=== PATIENT | female | born 1955 | race African-American/Black ===

== ENCOUNTER 2016-05-05 22:42 | Inpatient (IN) | payer MEDICARE, MEDICAID ==
[~2016-05-05] VITALS: Ht 167.6 cm; Wt 96.2 kg
[~2016-05-05 22:42] MED LIST: ABILIFY10 MG ORAL; ABILIFY30 MG; ACETAMINOPHEN-1 EAC1; ALBUTEROL2.5 MG/3 M; AMBIEN10 M1 ORAL; AMLODIPINE BESY10 MG; AMLODIPINE BESY10 MG ORAL; AMLODIPINE-BEN1 EAC1 PO; ASPIR 8181 MG ORAL; ASPIRIN81 MG ORAL; ATIVAN2 MG ORAL; ATORVASTATIN CA10 MG ORAL; BENADRYL50 MG ORAL; CATAPRES0.1 MG ORAL; CLONIDINE HCL0.3 MG; CLONIDINE HCL0.3 MG PO; CYMBALTA60 MG ORAL; ECOTRIN325 MG ORAL; FREESTYLE LANC1 EACH; GLIMEPIRIDE2 MG ORAL; GLIPIZIDE5 MG ORAL; GLUCOPHAGE500 MG ORAL; HYDRALAZINE HCL50 MG ORAL; HYDROCODON-ACE1 EA13; HYDROCODON-ACE1 EA15 ORAL; HYDROXYZINE HCL50 M1; ISOSORBIDE DINI10 MG ORAL; K-DUR10 ME1 ORAL; LAMICTAL ODT25 MG PO; LAMICTAL200 MG ORAL; LASIX40 MG ORAL; LISINOPRIL20 MG ORAL; LOSARTAN POTAS100 MG; LOSARTAN POTAS100 MG ORAL; LOSARTAN POTASS50 MG ORAL; LOSARTAN-HCTZ1 EAC1 ORAL; METFORMIN HCL1000 M1; METFORMIN HCL1000 M1 ORAL; METOPROLOL SUCC50 MG ORAL; NIACIN ER500 M1; NIACIN500 M1 PO; NORCO 10/3251 EA ORAL; NORCO 5-325 TA1 EACH ORAL; NORVASC10 MG ORAL; OXYCONTIN20 MG ORAL; PENTOXIFYLLINE400 MG; PENTOXIFYLLINE400 MG ORAL; POTASSIUM 25 M25 ME1 PO; POTASSIUM CHLO20 ME3 PO; PRAVACHOL40 MG ORAL; PREDNISONE10 M2 PO; PREDNISONE20 M1 PO; PRINIVIL20 MG ORAL; PROAIR HFA8.5 GM; PROAIR HFA8.5 GM INH; REMERON30 MG ORAL; REMERON45 MG ORAL; SEROQUEL XR300 MG; SEROQUEL200 MG ORAL; SIMVASTATIN20 MG; SIMVASTATIN20 MG ORAL; SOMA350 MG; SOMA350 MG PO; TYLENOL EXTRA500 MG ORAL; XANAX2 MG ORAL; ZITHROMAX250 MG ORAL
--- NOTE | 2016-05-05 22:56 | Emergency Room Report ---
History of Present Illness General Chief Complaint: Overdose Source: Patient, EMS Present Illness HPI This is a 61-year-old female with history of depression. She said she couldn't sleep so she took a handful of medication. She took Benadryl, Ativan, blood pressure medication and glimiperide. She said she tried to sleep. Vague suicidal thoughts. Denies any fever chills denies hallucination. Denies any homicidal thought. Daughter called 911. Allergies: Coded Allergies: KETOROLAC (Unverified Allergy, Unknown, 01/20/15) MORPHINE (Unverified Allergy, Unknown, 05/25/14) Patient History Past Medical History: see triage record, old chart reviewed, depression, HTN Past Surgical History: other Family History: none Social History: tobacco use Now: No Immunizations: other Reviewed Nursing Documentation: PMH: Agreed, PSxH: Agreed Nursing Documentation-PMH Past Medical History: No History, Except For Hx Cardiac Problems: Yes Hx Hypertension: Yes Hx Asthma: Yes Hx COPD: Yes Hx Diabetes: Yes Hx Cancer: No Hx Gastrointestinal Problems: No History Of Psychiatric Problem: Yes - Bipolar, Depression, anxiety. Hx Neurological Problems: No Hx Headaches: Yes Hx Numbness: Yes Review of Systems ENT: Denies: sore throat Cardiovascular: Denies: chest pain, palpitations Gastrointestinal/Abdominal: Denies: diarrhea, nausea, vomiting Musculoskeletal: Denies: back problems Skin: Denies: rash Neurological: Denies: SIMMS, seizures All Other Systems: negative except mentioned in HPI Physical Exam Vital Signs Date Time Temp Pulse Resp B/P Pulse Ox O2 Delivery O2 Flow Rate FiO2 05/05/16 22:49 98.2 62 16 194/89 100 Room Air vitals showed hypertension Sp02 EP Interpretation: reviewed, normal General Appearance: alert/responsive, no apparent distress, non-toxic Head: normocephalic, atraumatic Eyes: PERRL, EOMI ENT: oropharynx normal Neck: supple/symm/no masses Respiratory: effort normal, no rhonchi, no wheezing Cardiovascular: no murmur, gallop, rub Gastrointestinal: non-tender, no mass, non-distended, no rebound/guarding, normal bowel sounds Neurologic: oriented x3, sensory intact, motor strength/tone normal Psychiatric: affect normal Suicide Risk Assessment: Suicidal Ideation: Yes Had intent to initiate attempt: Yes Pt's plan for suicide attempt: Yes Has means to complete attempt: Yes Skin: no rash, normal palpation Medical Decision Making Diagnostic Impression: Primary Impression: Drug overdose Qualified Codes: T50.902A - Poisoning by unspecified drugs, medicaments and biological substances, intentional self-harm, initial encounter Additional Impressions: Suicidal overdose Qualified Codes: T50.902A - Poisoning by unspecified drugs, medicaments and biological substances, intentional self-harm, initial encounter Obesity (BMI 30.0-34.9) Sulfonylurea derivatives, oral overdose Qualified Codes: T38.3X2A - Poisoning by insulin and oral hypoglycemic [ antidiabetic] drugs, intentional self-harm, initial encounter Hypertension Qualified Codes: I10 - Essential (primary) hypertension ER Course Patient presents with an overdose. This occurred occasionally per her daughter. She is severe depression. She also history chronic pain. The main concern here is the overdose of sulfonyluria. The service of hypoglycemia. Will admit for monitoring and dextrose solution. She may benefit from psychiatric evaluation. I discussed the case with Dr. Mittal who will admit. Lab Results Impression Labs unremarkable. EKG Diagnostic Results Rate: normal Rhythm: NSR ST Segments: no acute changes Rhythm Strip Diag. Results EP Interpretation: yes Rate: 66 Rhythm: NSR, no PVC's, no ectopy Last Vital Signs Date Time Temp Pulse Resp B/P Pulse Ox O2 Delivery O2 Flow Rate FiO2 05/05/16 22:49 98.2 62 16 194/89 100 Room Air Status: improved Disposition: ADMITTED INPATIENT Condition: Serious MARISA NAVA M.D. May 05, 2016 22:56
[2016-05-05 23:56] LABS: BASOPHILS % (AUTO) 1.5 % (0.0-2.0); EOSINOPHILS % (AUTO) 2.8 % (0.0-3.0); LYMPHOCYTES % (AUTO) 50.5 % (20.0-45.0); MEAN CORPUSCULAR HEMOGLOBIN 29.3 PG (27.0-31.0); MEAN CORPUSCULAR HGB CONC 32.6 G/DL (32.0-36.0); MEAN CORPUSCULAR VOLUME 90 FL (80-99); MEAN PLATELET VOLUME 5.8 FL (6.5-10.1); MONOCYTES % (AUTO) 7.2 % (1.0-10.0); PLATELET COUNT 318 K/UL (150-450); WHITE BLOOD COUNT 7.1 K/UL (4.8-10.8)
[2016-05-06] VITALS (9 sets, daily range): BP systolic 127–194; BP diastolic 59–104
[2016-05-06 00:09] LABS: ACETAMINOPHEN < 10 ug/mL (10-30); ALANINE AMINOTRANSFERASE 19 U/L (3-33); ALBUMIN/GLOBULIN RATIO 1.1 (1.0-2.7); ALCOHOL < 10 mg/dL; ANION GAP 13 (5-15); ASPARTATE AMINO TRANSFERASE 13 U/L (5-40); CALCIUM 9.3 mg/dL (8.6-10.2); CARBON DIOXIDE 30 mEQ/L (20-30); CHLORIDE 97 mEQ/L (98-107); GLOMERULAR FILTRATION RATE > 60 mL/min (>60); HEMOLYSIS 1; POTASSIUM 3.5 mEQ/L (3.4-4.9); SODIUM 140 mEQ/L (135-145); TOTAL PROTEIN 7.2 g/dL (6.6-8.7)
[2016-05-06] MEDS ORDERED: Albuterol 90mcg Inhaler 8gm INH PRN (00:45)
[2016-05-06] MEDS ORDERED: Milk of Magnesia 30ml Ud ORAL PRN (00:45)
[2016-05-06] MEDS ORDERED: Nitroglycerin Subl 0.4mg tab (Bottle Of 25) SL PRN (00:45)
[2016-05-06] MEDS ORDERED: oxyCODONE 5mg IR tab ORAL PRN (00:45)
[2016-05-06 00:54] LABS: APPEARANCE,URINE CLEAR; KETONES,URINE NEGATIVE (NEGATIVE); LEUKOCYTE ESTERASE ,URINE NEGATIVE (NEGATIVE); NITRITE,URINE NEGATIVE (NEGATIVE); PH,URINE 6 (4.5-8.0); PROTEIN,URINE NEGATIVE (NEGATIVE); UROBILINOGEN,URINE NORMAL MG/DL (0.0-1.0)
[2016-05-06] MEDS ORDERED: D5 1/2NS 1,000 ML IV SCH (01:15)
[2016-05-06] MEDS ORDERED: D5W w/KCl 20mEq 1,000 ML IV SCH (01:30)
[2016-05-06] MEDS ORDERED: HydrALAZINE 50mg tab ORAL SCH ×2 (06:00→22:00)
[2016-05-06] MEDS ORDERED: Aspirin Baby 81mg ORAL SCH (09:00)
[2016-05-06] MEDS ORDERED: Lisinopril 20mg tab ORAL SCH (09:00)
[2016-05-06] MEDS ORDERED: DULoxetine 30mg cap ORAL SCH (09:00)
[2016-05-06] MEDS: Docusate 100mg cap ORAL SCH ×2 (11:52→21:00)
[2016-05-06] MEDS: Heparin 5000 units/ml inj SUBQ SCH ×2 (11:56→21:00)
[2016-05-06] MEDS ORDERED: Losartan 50mg tab ORAL SCH (18:30)
--- NOTE | 2016-05-06 20:47 | History and Physical Report ---
DATE OF ADMISSION: 05/06/2016 CHIEF COMPLAINT AND REASON FOR HOSPITALIZATION.: The patient admitted with overdose. HISTORY OF PRESENT ILLNESS: The patient is well known to, me has a history of bipolar disease, adult onset diabetes, chronic obstructive pulmonary disease, severe hypertension, hyperlipidemia, and chronic pain syndrome with back pain, sciatica, and fibromyalgia. She has apparently took a handful of pills that included Benadryl, Xanax, and diabetic medications, glimepiride and possible other medicines as well and presented to the emergency room after the family called 911. The emergency room physician was concerned that she could develop severe hypoglycemia from excess of the diabetic medications and the patient did admit to some suicidal thoughts and for this reason, she is admitted. She has had multiple somatic complaints. She has had a negative stress test within the last year. She has chronic pain syndrome and receives pain medicines through another physician of oxycodone 30 mg t.i.d. and the patient also sees a psychiatrist at the [facility] on a regular basis. ALLERGIES: Morphine causes itching. MEDICATIONS: Amlodipine discontinued, clonidine 0.3 mg twice a day, Cymbalta 90 mg daily, Lamictal 200 mg daily, losartan 100 mg daily, Pravachol 40 mg daily, oxycodone 30 mg three times a day, she takes glimepiride 4 mg twice a day, albuterol by HHN 2.5 mg every 4 hours as needed, ProAir inhaler 2 puffs every four hours as needed, Pulmicort two sprays twice a day, Xanax 2 mg twice a day, Ambien 10 mg at bedtime, MOM 30 mL daily as needed, and hydrocortisone cream as needed. PAST SURGICAL HISTORY: Hysterectomy and tonsillectomy. FAMILY HISTORY: Positive for diabetes in the sister, CVA in her sister and mother. Father of an myocardial infarction. HABITS: She is a former cigarette smoker most of her life, quit about a year ago. No alcohol. The patient denies illicit drugs. SYSTEM REVIEW: HEENT: Head, eyes, ears, nose, and throat, she needs eyeglasses. No known glaucoma or cataracts or diabetic retinopathy. Hearing is good. ENDOCRINE: History of diabetes . No known thyroid disease. PULMONARY: History of smoking and asthma and bronchospasm intermittently. CARDIAC: History of atypical chest pain and negative stress test. History of difficult to control hypertension. GASTROINTESTINAL: History of heartburn and gastritis in the past, currently not bothering her. Some irritable bowel syndromes intermittently. GENITOURINARY: No dysuria, hematuria, or kidney stones. MUSCULOSKELETAL: History of generalized joint pain, back pain, and sciatica. PSYCHIATRIC: History of bipolar and she has had several overdoses in the past. PHYSICAL EXAMINATION: GENERAL: The patient is an alert lady, in no acute distress. VITAL SIGNS: Temperature 98.2, pulse 56, respirations 16, and blood pressure 135/59. HEENT: Head, eyes, ears, nose, and throat, sclerae are nonicteric. Ocular motions intact in all directions. Oral mucosa moist. NECK: Thick, but I do not feel any thyroid enlargement. LUNGS: Clear. HEART: Regular rhythm. No murmur. ABDOMEN: Soft. No organomegaly or masses. EXTREMITIES: No edema, cyanosis, or clubbing. NEUROLOGIC: She is alert and oriented. Cranial nerves are intact. There is no EPS or tremor or focal findings. PSYCHIATRIC: She has a depressed mood. She admits to suicidal thoughts. She states she talks to herself, but denies hearing voices. LABORATORY AND DIAGNOSTIC DATA: Pertinent labs show a normal CBC and a normal Chem panel. Initial glucose 137 and fingerstick glucoses are in the low 100s. Liver enzymes are normal. Toxicology screen is positive for a urine for benzodiazepines. IMPRESSION: 1. Overdose, intentional with suicidal thoughts. 2. Excess oral antidiabetic medications. 3. Chronic pain syndrome, fibromyalgia. 4. Bipolar. 5. Severe hypertension. 6. Chronic obstructive pulmonary disease and asthma. PLAN: The patient's diabetes will be monitored. At this time, it appears that the high risk of hypoglycemia has improved. We will consider transferring her to a psychiatric facility in view of her mood disorder and suicidal thoughts and we will get appropriate evaluation for the above. Ian Mittal M.D. DR: DELTA JOB#: [id number] CC:
--- NOTE | 2016-05-07 15:11 | Cardiology Report ---
APPROVED REPORT EKG Measurement Heart [id number] DC [id number] Normal sinus rhythm with sinus arrhythmia Nonspecific T wave abnormality Abnormal ECG
--- NOTE | 2016-05-08 00:18 | Discharge Summary ---
DATE OF ADMISSION: 05/06/2016 DATE OF DISCHARGE: 05/06/2016 PERTINENT HISTORY: The patient has a history of bipolar disease, diabetes, chronic obstructive pulmonary disease, hypertension, and chronic pain syndrome. She said she took a handful of pills including Benadryl, Xanax, and glimepiride. The emergency room physician thought that she should stay for monitoring of her glucose. PERTINENT PHYSICAL FINDINGS: LUNGS: Clear. HEART: Regular rhythm. ABDOMEN: Soft. NEUROLOGIC: She is alert and oriented. No focal findings. COURSE IN THE HOSPITAL: The patient had glucose monitored serially and there was no hypoglycemia or other adverse events. She was alert and aware of her situation. She did have a psychiatrist at the [facility], for which she would follow up. The patient's sedatives were reduced. Her glucose was monitored and I requested a possible PET team evaluation, but the patient left the hospital against medical advice prior to arrival of such evaluation. FINAL DIAGNOSES: 1. Overdose, intentional with suicidal thoughts. 2. Bipolar disease. 3. Excess oral antidiabetic medications without any hypoglycemia. 4. Chronic pain syndrome and fibromyalgia. 5. Severe hypertension. 6. Chronic obstructive pulmonary disease and asthma. DISCHARGE DISPOSITION: The patient left AMA. She is encouraged to follow up in the office of her psychiatrist and is advised back to see Dr. Mittal and other consultants as she wishes. Ian Mittal M.D. DR: DELTA JOB#: [id number] CC:
== END 2016-05-06 23:30 | disposition left against medical advice (07) | DRG 918 ==
LOC: EDUNIT# 22:42 → EDBD 22:42 → EMR 22:59 → EDBEDREQ 05-06 00:52 → 2E 05-06 01:22 → EDBEDREQ 05-06 07:09 → 2E 05-06 09:31
DX: T38.3X2A Poisoning by insulin and oral hypoglycemic [antidiabetic] drugs, intentional self-harm, initial encounter (principal); J44.9 Chronic obstructive pulmonary disease, unspecified; I10 Essential (primary) hypertension; G89.4 Chronic pain syndrome; E78.5 Hyperlipidemia, unspecified; M79.7 Fibromyalgia; Z87.891 Personal history of nicotine dependence; F31.9 Bipolar disorder, unspecified; J45.909 Unspecified asthma, uncomplicated; Z53.21 Procedure and treatment not carried out due to patient leaving prior to being seen by health care provider; T42.4X2A Poisoning by benzodiazepines, intentional self-harm, initial encounter; Y92.013 Bedroom of single-family (private) house as the place of occurrence of the external cause; E11.9 Type 2 diabetes mellitus without complications; Z79.84 Long term (current) use of oral hypoglycemic drugs
CPT/HCPCS: 36415; 80053; 80300; 80329; 81003; 82962; 85025; 93005

== ENCOUNTER 2016-07-21 22:33 | Emergency (ER) | payer MEDICARE, MEDICAID ==
[~2016-07-21] VITALS: Ht 167.6 cm; Wt 95.3 kg
[2016-07-21] MEDS ORDERED: PredniSONE 20mg tab ORAL ONE (23:15)
[2016-07-21] MEDS ORDERED: DiphenhydrAMINE 50mg/ml Inj IM ONE (23:15)
[2016-07-22] MEDS ORDERED: BENADRYL25 MG ORAL (00:15)
[2016-07-22] MEDS ORDERED: PREDNISONE20 MG ORAL (00:15)
--- NOTE | 2016-07-22 00:16 | Emergency Room Report ---
History of Present Illness General Chief Complaint: Allergic Reaction Source: Patient, Medical Record Present Illness HPI This is a 61-year-old female with a history anxiety and diabetes. She had some pain issue saw her DrMartina yesterday. She received meloxicam. She has an allergy to Toradol. She said she breaks out from it. After she took the meloxicam she developed itching and rash all her body. Worse today. Unable to get comfortable. Has not anything for it. No wheezing. No respiratory complaint. No tongue edema. She has a history diabetes and said that her hemoglobin A1c was 7 a couple weeks ago. Allergies: Coded Allergies: KETOROLAC (Unverified Allergy, Unknown, 01/20/15) MORPHINE (Unverified Allergy, Unknown, 05/25/14) Patient History Past Medical History: see triage record, old chart reviewed, DM Past Surgical History: other Pertinent Family History: none Social History: Denies: smoking Now: No Immunizations: other Reviewed Nursing Documentation: PMH: Agreed, PSxH: Agreed Nursing Documentation-PMH Hx Cardiac Problems: Yes Hx Hypertension: Yes Hx Asthma: Yes Hx COPD: Yes Hx Diabetes: Yes Hx Cancer: No Hx Gastrointestinal Problems: No Hx Neurological Problems: No Hx Headaches: Yes Hx Numbness: Yes Review of Systems Eye: Denies: blurred vision, eye pain ENT: Denies: ear pain, nose congestion, throat swelling Respiratory: Denies: cough, shortness of breath Cardiovascular: Denies: chest pain, palpitations Gastrointestinal: Denies: abdominal pain, diarrhea, nausea, vomiting Musculoskeletal: Denies: back pain, joint pain Skin: Denies: rash Neurological: Denies: headache, numbness Endocrine: Denies: increased thirst, increased urine Hematologic/Lymphatic: Denies: easy bruising All Other Systems: negative except mentioned in HPI Physical Exam Vital Signs Date Time Temp Pulse Resp B/P Pulse Ox O2 Delivery O2 Flow Rate FiO2 07/21/16 22:54 97.9 94 16 140/77 97 Room Air vitals normal. Sp02 EP Interpretation: reviewed, normal General Appearance: well appearing, no apparent distress, alert, obese Head: normocephalic, atraumatic Eyes: bilateral eye EOMI, bilateral eye PERRL ENT: hearing grossly normal, normal pharynx Neck: full range of motion, supple, no meningismus Respiratory: chest non-tender, lungs clear, normal breath sounds Cardiovascular #1: regular rate, rhythm, no murmur Gastrointestinal: normal bowel sounds, non tender, no mass, no organomegaly, no bruit, non-distended Musculoskeletal: back normal, gait/station normal, normal range of motion Psychiatric: mood/affect normal Skin: warm/dry, rash - diffuse urticaria Medical Decision Making Diagnostic Impression: Primary Impression: Allergic reaction Qualified Codes: T78.40XA - Allergy, unspecified, initial encounter Additional Impression: Obesity (BMI 30.0-34.9) ER Course Patient present with allergic reaction to NSAIDs. I told her to stop the meloxicam. No respiratory complaint. No anaphylaxis. We'll discharge home. Last Vital Signs Date Time Temp Pulse Resp B/P Pulse Ox O2 Delivery O2 Flow Rate FiO2 07/21/16 22:54 97.9 94 16 140/77 97 Room Air Status: improved Disposition: HOME, SELF-CARE Condition: Stable Scripts Prednisone* (PREDNISONE*) 20 Mg Tablet 60 MG ORAL DAILY, #12 TAB Prov: MARISA NAVA M.D. 07/22/16 Diphenhydramine Hcl* (BENADRYL*) 25 Mg Capsule 50 MG ORAL Q6H Y for Itching, #30 CAP Prov: MARISA NAVA M.D. 07/22/16 Referrals: NOT CHOSEN IPA/,REFERRING (PCP) Patient Instructions: Drug Allergy Additional Instructions: Stop the Meloxicam. See your doctor in 2-3 days. Return if worse. MARISA NAVA M.D. Jul 22, 2016 00:16
[2016-07-22 00:40] VITALS: BP 140/77
== END 2016-07-22 00:40 | disposition home or self-care (01) ==
LOC: EMR 23:16
DX: T78.40XA Allergy, unspecified, initial encounter (principal); T39.395A Adverse effect of other nonsteroidal anti-inflammatory drugs [NSAID], initial encounter; E66.9 Obesity, unspecified; Z68.34 Body mass index [BMI] 34.0-34.9, adult; E11.9 Type 2 diabetes mellitus without complications; I10 Essential (primary) hypertension; J44.9 Chronic obstructive pulmonary disease, unspecified; J45.909 Unspecified asthma, uncomplicated; Z88.6 Allergy status to analgesic agent; Z88.8 Allergy status to other drugs, medicaments and biological substances; Y92.9 Unspecified place or not applicable
CPT/HCPCS: 96372; 99284; J1200

== ENCOUNTER 2016-08-10 17:20 | Emergency (ER) | payer MEDICARE, MEDICAID ==
[~2016-08-10] VITALS: Ht 167.6 cm; Wt 93.0 kg
[~2016-08-10 17:20] MED LIST changes: +BENADRYL25 MG ORAL; +PREDNISONE20 MG ORAL
[2016-08-10] MEDS ORDERED: Albuterol ud Inhalation HHN ONE (18:00)
[2016-08-10 18:09] VITALS: BP 136/88
[2016-08-10 18:15] LABS: BASOPHILS % (AUTO) 0.9 % (0.0-2.0); EOSINOPHILS % (AUTO) 1.2 % (0.0-3.0); LYMPHOCYTES % (AUTO) 40.9 % (20.0-45.0); MEAN CORPUSCULAR HEMOGLOBIN 28.6 PG (27.0-31.0); MEAN CORPUSCULAR HGB CONC 32.1 G/DL (32.0-36.0); MEAN CORPUSCULAR VOLUME 89 FL (80-99); MEAN PLATELET VOLUME 6.8 FL (6.5-10.1); MONOCYTES % (AUTO) 7.2 % (1.0-10.0); NEUTROPHILS % (AUTO) 49.9 % (45.0-75.0); PLATELET COUNT 324 K/UL (150-450); RED BLOOD COUNT 4.41 M/UL (4.20-5.40); RED CELL DISTRIBUTION WIDTH 13.3 % (11.6-14.8); WHITE BLOOD COUNT 7.7 K/UL (4.8-10.8)
--- NOTE | 2016-08-10 18:18 | Emergency Room Report ---
History of Present Illness General Chief Complaint: Chest Pain Source: Patient Present Illness HPI 61YO F walk-in with a few days progressive worse decreased exercise tolerance. ++Multiple year heavy smoker, known COPD. Had negative stress test in 2016 per EMR. Denies chest pain, SOB, abd pain, fever/chills, cough, leg pain / swelling. Was treated recently by PMD with antibiotics "to prevent pneumonia." Allergies: Coded Allergies: KETOROLAC (Unverified Allergy, Unknown, 01/20/15) MORPHINE (Unverified Allergy, Unknown, 05/25/14) Patient History Past Medical History: DM, HTN, COPD, other - fibromyalgia, chronic pain syndrome Past Surgical History: none Pertinent Family History: other - DM, HTN, CAD,CVD Social History: Reports: smoking, Denies: alcohol use, drug use Last Menstrual Period: n/a Now: No Immunizations: UTD Reviewed Nursing Documentation: PMH: Agreed, PSxH: Agreed Nursing Documentation-PMH Past Medical History: No History, Except For Hx Cardiac Problems: Yes Hx Hypertension: Yes Hx Asthma: Yes Hx COPD: Yes Hx Diabetes: Yes Hx Cancer: No Hx Gastrointestinal Problems: No Hx Neurological Problems: No Hx Headaches: Yes Hx Numbness: Yes Review of Systems All Other Systems: negative except mentioned in HPI Physical Exam Vital Signs Date Time Temp Pulse Resp B/P Pulse Ox O2 Delivery O2 Flow Rate FiO2 08/10/16 17:32 98.2 65 16 136/88 100 Room Air Sp02 EP Interpretation: reviewed, normal General Appearance: normal inspection, well appearing, no apparent distress, alert, GCS 15, non-toxic, obese, other - Well appearing, sitting upright in stretcher, no acute distress Head: normocephalic, atraumatic Eyes: bilateral eye EOMI, bilateral eye PERRL ENT: normal ENT inspection, hearing grossly normal, normal voice Neck: normal inspection, full range of motion, supple, no bony tend Respiratory: normal inspection, lungs clear, normal breath sounds, no rhonchi, no respiratory distress, no retraction, no accessory muscle use, no wheezing, speaking full sentences Cardiovascular #1: regular rate, rhythm, no edema, no gallop Gastrointestinal: normal inspection, normal bowel sounds, non tender, soft, no guarding, no hernia Genitourinary: no CVA tenderness Musculoskeletal: normal inspection, back normal, normal range of motion, Gallo' s Sign negative Neurologic: normal inspection, alert, oriented x3, responsive, 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 ECG is NSR, no ischemia. Troponin 0. BNP WNL Not wheezing or in acute COPD exacerbation Labs: No leuks. H&H stable. No further reason to admit for further evaluation/management Recommneded PMD followup for outpatient echo DC home EKG Diagnostic Results Rate: normal Rhythm: NSR ST Segments: other - TWI in 3 ASA given to the pt in ED: No Rhythm Strip Diag. Results EP Interpretation: yes Rate: 57 Rhythm: no PVC's, no ectopy Chest X-Ray Diagnostic Results EP Interpretation: Yes Findings: no consolidation, no effusion, no pneumothorax, no acute cardiopulmonary disease Number of Views: 1 Last Vital Signs Date Time Temp Pulse Resp B/P Pulse Ox O2 Delivery O2 Flow Rate FiO2 08/10/16 18:09 16 136/88 100 Room Air 08/10/16 18:09 65 08/10/16 17:32 98.2 Status: improved Disposition: HOME, SELF-CARE TUYET STANLEY M.D. Aug 10, 2016 18:18
[2016-08-10 18:34] LABS: ALANINE AMINOTRANSFERASE 18 U/L (3-33); ALBUMIN/GLOBULIN RATIO 1.2 (1.0-2.7); ANION GAP 16 (5-15); ASPARTATE AMINO TRANSFERASE 28 U/L (5-40); CALCIUM 9.6 mg/dL (8.6-10.2); CARBON DIOXIDE 27 mEQ/L (20-30); CHLORIDE 95 mEQ/L (98-107); CREATININE 1.1 mg/dL (0.5-0.9); GLOMERULAR FILTRATION RATE > 60 mL/min (>60); HEMOLYSIS 113; POTASSIUM 4.4 mEQ/L (3.4-4.9); SODIUM 138 mEQ/L (135-145); TROPONIN I < 0.30 ng/mL (<=0.30)
[2016-08-10 18:44] LABS: CKMB < 1.5 ng/mL (< 3.8)
[2016-08-10 19:45] VITALS: BP 130/85
--- NOTE | 2016-08-11 12:29 | Diagnostic Imaging Report ---
Indications: Shortness of breath Technique: Portable AP chest Findings: Comparison: 03/20/16 Inspiratory effort has improved, remains suboptimal. Cardiac silhouette remains enlarged. Pulmonary vasculature currently within normal limits. Lungs and pleura currently clear, aside from persistent retrocardiac linear density, right minor fissure pleural thickening. No new abnormality identified. IMPRESSION: No current evidence of acute cardiopulmonary disease Right minor fissure pleural thickening versus fluid, stable Left lung base subsegmental atelectasis versus scarring, stable Cardio megaly, stable
--- NOTE | 2016-08-13 15:56 | Cardiology Report ---
APPROVED REPORT EKG Measurement Heart [id number] TN [id number] Sinus bradycardia Nonspecific T wave abnormality Abnormal ECG
== END 2016-08-10 19:45 | disposition home or self-care (01) ==
LOC: EMR 18:47
DX: R07.89 Other chest pain (principal); E11.9 Type 2 diabetes mellitus without complications; J44.9 Chronic obstructive pulmonary disease, unspecified; M79.7 Fibromyalgia; G89.4 Chronic pain syndrome; I25.10 Atherosclerotic heart disease of native coronary artery without angina pectoris; I10 Essential (primary) hypertension; F17.200 Nicotine dependence, unspecified, uncomplicated; Z82.49 Family history of ischemic heart disease and other diseases of the circulatory system; Z83.3 Family history of diabetes mellitus
CPT/HCPCS: 36415; 71010; 80053; 82550; 82553; 83880; 84484; 85025; 93005; 94640; 99283

== ENCOUNTER 2017-05-15 09:30 | Emergency (ER) | payer MEDICARE, MEDICAID ==
[~2017-05-15] VITALS: Ht 170.2 cm; Wt 81.6 kg
[2017-05-15] MEDS ORDERED: Albuterol/Ipratropium 3ml neb HHN ONE (10:15)
[2017-05-15 10:44] VITALS: BP 142/68
[2017-05-15] MEDS ORDERED: TAMIFLU75 MG ORAL (10:55)
[2017-05-15] MEDS ORDERED: PREDNISONE20 MG ORAL (10:55)
--- NOTE | 2017-05-15 10:57 | Diagnostic Imaging Report ---
Indication: Dyspnea Technique: XRAY Chest 1v Comparison: 08/10/2016 Findings: Stable cardiomegaly. There is unchanged linear scarring/atelectasis along the right minor fissure and unchanged vertical linear scarring in the retrocardiac left lung. There is new linear opacities in the right base and peripheral left lung which may be related to subsegmental atelectasis. There is no pleural effusion or pneumothorax. No acute bony abnormality. Impression: New linear opacities in the left peripheral lung and right base possibly related to subsegmental atelectasis. The possibility of pneumonia is not entirely excluded, although thought less likely. Clinical correlation and follow-up exam recommended. Unchanged linear scarring/atelectasis along the minor fissure on the right and in the retrocardiac left lung.
[2017-05-15 11:07] VITALS: BP 138/61
[2017-05-15] MEDS ORDERED: NAPROXEN375 M2 ORAL (11:15)
--- NOTE | 2017-05-17 07:17 | Emergency Room Report ---
History of Present Illness General Chief Complaint: Generalized Weakness Source: Patient, Medical Record Present Illness HPI Patient is a 62-year-old female who presented after increased cough and difficulty breathing. Patient gradual onset of symptoms. The patient reported having nonproductive cough. She reports having generalized body aches. She denies any fever. She reports having some chest pain with coughing. She had prior history of diabetes as well as lung disease. Allergies: Coded Allergies: KETOROLAC (Unverified Allergy, Unknown, 01/20/15) MELOXICAM (Verified Allergy, Unknown, 05/15/17) MORPHINE (Unverified Allergy, Unknown, 05/25/14) PREGABALIN (Verified Allergy, Unknown, 05/15/17) Patient History Past Medical History: see triage record Reviewed Nursing Documentation: PMH: Agreed, PSxH: Agreed Nursing Documentation-PMH Past Medical History: No History, Except For Hx Cardiac Problems: Yes - fibromyalgia, lupus Hx Hypertension: Yes Hx Pacemaker: No Hx Asthma: Yes Hx COPD: Yes Hx Diabetes: Yes Hx Cancer: No Hx Gastrointestinal Problems: No Hx Dialysis: No History Of Psychiatric Problem: No Hx Neurological Problems: No Hx Cerebrovascular Accident: No Hx Seizures: No Hx Headaches: Yes Hx Numbness: Yes Review of Systems All Other Systems: negative except mentioned in HPI Physical Exam Vital Signs Date Time Temp Pulse Resp B/P (MAP) Pulse Ox O2 Delivery O2 Flow Rate FiO2 05/15/17 09:49 98.2 83 16 142/71 95 Room Air 05/15/17 10:44 21 General Appearance: well appearing, no apparent distress, alert, GCS 15 Head: normocephalic, atraumatic ENT: hearing grossly normal, normal voice Neck: full range of motion, supple Respiratory: lungs clear, no respiratory distress, speaking full sentences, wheezing Cardiovascular #1: normal inspection, normal peripheral pulses, regular rate, rhythm Gastrointestinal: normal inspection Musculoskeletal: no calf tenderness Neurologic: normal gait Psychiatric: mood/affect normal Skin: no rash Medical Decision Making Diagnostic Impression: Primary Impression: Bronchitis ER Course Patient presented for cough. Differential diagnosis included but was not limited to bronchitis, pneumonia, pulmonary embolism, pericarditis, asthma, foreign body. EKG interpreted by me showed normal sinus rhythm with nonspecific ST changes unchanged from patient's previous EKG. Patient was given breathing treatment.The patient is advised to follow up with primary care doctor in 1-2 days. Patient is advised to return if any worsening condition or if any changes in status that are concerning. This report is dictated with [email or web address] firebrick layer software which may occasionally lead to discrepancies related to use of this software. Last Vital Signs Date Time Temp Pulse Resp B/P (MAP) Pulse Ox O2 Delivery O2 Flow Rate FiO2 05/15/17 11:07 77 18 138/61 100 Room Air 05/15/17 10:53 21 05/15/17 10:44 98.0 Status: improved Disposition: HOME, SELF-CARE Condition: Stable Scripts Naproxen* (NAPROXEN*) 375 Mg Tablet. 375 MG ORAL TWICE A DAY, #20 TAB Prov: Kyle Lopez 05/15/17 Prednisone* (PREDNISONE*) 20 Mg Tablet 40 MG ORAL DAILY, #10 TAB Prov: Kyle Lopez 05/15/17 Oseltamivir Phosphate (Tamiflu) 75 Mg Capsule 75 MG ORAL TWICE A DAY, #10 CAP Prov: Kyle Lopez 05/15/17 Patient Instructions: Acute Bronchitis Kyle Lopez May 17, 2017 07:17
--- NOTE | 2017-05-21 15:27 | Cardiology Report ---
APPROVED REPORT EKG Measurement Heart [id number] HI 152P58 [id number] Normal sinus rhythm T wave abnormality, consider lateral ischemia Abnormal ECG
== END 2017-05-15 11:15 | disposition home or self-care (01) ==
LOC: EMR 09:59
DX: J45.909 Unspecified asthma, uncomplicated (principal); I10 Essential (primary) hypertension; E11.9 Type 2 diabetes mellitus without complications; M32.9 Systemic lupus erythematosus, unspecified; Z88.8 Allergy status to other drugs, medicaments and biological substances
CPT/HCPCS: 71045; 93005; 94640; 94664; 99283; J7620

== ENCOUNTER 2017-09-06 12:25 | Emergency (ER) | payer MEDICARE, MEDICAID ==
[~2017-09-06] VITALS: Ht 167.6 cm; Wt 113.4 kg
[~2017-09-06 12:25] MED LIST changes: +NAPROXEN375 M2 ORAL; +TAMIFLU75 MG ORAL
[2017-09-06 12:40] VITALS: BP 165/90
[2017-09-06] MEDS ORDERED: Nitroglycerin 2% oint pkt TOPIC ONE (13:00)
--- NOTE | 2017-09-06 13:03 | Emergency Room Report ---
History of Present Illness General Chief Complaint: Chest Pain Source: Patient, EMS Present Illness HPI Patient presents with complaints of chest pain midsternal sharp shooting Intermittent over the past 7 days Patient reports that she saw her roll inspector last week Had echocardiogram which was normal Patient has been trying to get her blood pressure better controlled as outpatient however there was some discrepancy between insurance and ability to fill some medications Patient denies any vomiting or diarrhea denies any pleurisy Denies any change with position or exertion Allergies: Coded Allergies: KETOROLAC (Unverified Allergy, Unknown, 01/20/15) MELOXICAM (Verified Allergy, Unknown, 05/15/17) MORPHINE (Unverified Allergy, Unknown, 05/25/14) PREGABALIN (Verified Allergy, Unknown, 05/15/17) Patient History Past Medical History: see triage record Pertinent Family History: none Reviewed Nursing Documentation: PMH: Agreed; PSxH: Agreed Nursing Documentation-PMH Past Medical History: No History, Except For Hx Cardiac Problems: Yes - fibromyalgia, lupus Hx Hypertension: Yes Hx Pacemaker: No Hx Asthma: Yes Hx COPD: Yes Hx Diabetes: Yes Hx Cancer: No Hx Gastrointestinal Problems: No Hx Dialysis: No Hx Neurological Problems: No Hx Cerebrovascular Accident: No Hx Seizures: No Hx Headaches: Yes Hx Numbness: Yes Review of Systems All Other Systems: negative except mentioned in HPI Physical Exam Vital Signs Date Time Temp Pulse Resp B/P (MAP) Pulse Ox O2 Delivery O2 Flow Rate FiO2 09/06/17 12:19 98.4 84 20 165/90 99 Room Air 98.4 Sp02 EP Interpretation: reviewed, normal General Appearance: well appearing, no apparent distress Head: normocephalic, atraumatic Eyes: bilateral eye PERRL, bilateral eye EOMI ENT: hearing grossly normal, normal pharynx, TMs + canals normal, uvula midline Neck: full range of motion, supple, no meningismus, no bony tend Respiratory: lungs clear, normal breath sounds, no rhonchi, no respiratory distress, no retraction, no accessory muscle use Cardiovascular #1: normal peripheral pulses, regular rate, rhythm, no edema, no gallop, no JVD, no murmur Gastrointestinal: normal bowel sounds, non tender, soft, no mass, no organomegaly, non-distended, no guarding, no hernia, no pulsatile mass, no rebound Genitourinary: no CVA tenderness Musculoskeletal: normal inspection Neurologic: oriented x3, responsive, scaffolding helper III-XII nml as tested, motor strength/ tone normal, sensory intact Psychiatric: mood/affect normal Skin: normal color, no rash, warm/dry, palpation normal Lymphatic: normal inspection, no adenopathy Medical Decision Making Diagnostic Impression: Primary Impression: Chest pain ER Course Patient is a fairly complex patient with multiple differential to consideration including but not limited to cardiac cardiopulmonary and vascular emergencies Patient's EKG compares well to her previous Patient remains fairly a symptomatically throughout her stay here She did complain of intermittent chest pain However troponin and other blood work all within normal limits Patient's blood pressure has remained appropriate throughout her stay here I did discuss different medications such as clonidine She reports that she was on that medication previously however was told by her roll inspector not to take it Patient was recommended to follow-up with her roll inspector tomorrow Labs Test 09/06/17 13:05 White Blood Count 6.1 K/UL (4.8-10.8) Red Blood Count 3.96 M/UL (4.20-5.40) Hemoglobin 12.0 G/DL (12.0-16.0) Hematocrit 35.9 % (37.0-47.0) Mean Corpuscular Volume 91 FL (80-99) Mean Corpuscular Hemoglobin 30.4 PG (27.0-31.0) Mean Corpuscular Hemoglobin Concent 33.5 G/DL (32.0-36.0) Red Cell Distribution Width 12.1 % (11.6-14.8) Platelet Count 289 K/UL (150-450) Mean Platelet Volume 6.1 FL (6.5-10.1) Neutrophils (%) (Auto) 53.7 % (45.0-75.0) Lymphocytes (%) (Auto) 36.2 % (20.0-45.0) Monocytes (%) (Auto) 8.1 % (1.0-10.0) Eosinophils (%) (Auto) 0.9 % (0.0-3.0) Basophils (%) (Auto) 1.1 % (0.0-2.0) Sodium Level 143 MMOL/L (136-145) Potassium Level 3.3 MMOL/L (3.5-5.1) Chloride Level 104 MMOL/L (98-107) Carbon Dioxide Level 28 MMOL/L (21-32) Anion Gap 11 mmol/L (5-15) Blood Urea Nitrogen 13 mg/dL (7-18) Creatinine 0.9 MG/DL (0.55-1.30) Estimat Glomerular Filtration Rate > 60 mL/min (>60) Glucose Level 137 MG/DL (74-106) Calcium Level 9.4 MG/DL (8.5-10.1) Total Bilirubin 0.3 MG/DL (0.2-1.0) Aspartate Amino Transf (AST/SGOT) 17 U/L (15-37) Alanine Aminotransferase (ALT/SGPT) 29 U/L (12-78) Alkaline Phosphatase 69 U/L (46-116) Total Creatine Kinase 172 U/L (26-308) Creatine Kinase MB 1.2 NG/ML (0.0-3.6) Creatine Kinase MB Relative Index 0.6 Troponin I 0.020 ng/mL (0.000-0.056) Total Protein 8.0 G/DL (6.4-8.2) Albumin 3.8 G/DL (3.4-5.0) Globulin 4.2 g/dL Albumin/Globulin Ratio 0.9 (1.0-2.7) EKG Diagnostic Results Rate: normal Rhythm: NSR ST Segments: other - Nonspecific T-wave changes identical to previous Rhythm Strip Diag. Results EP Interpretation: yes Rate: 65 Rhythm: NSR, no PVC's, no ectopy Chest X-Ray Diagnostic Results Chest X-Ray Diagnostic Results : Chest X-Ray Ordered: Yes # of Views/Limited/Complete: 1 View Indication: Chest Pain EP Interpretation: Yes Interpretation: no consolidation, no effusion, no pneumothorax Impression: No acute disease Electronically Signed by: Handy Bernard DO Last Vital Signs Date Time Temp Pulse Resp B/P (MAP) Pulse Ox O2 Delivery O2 Flow Rate FiO2 09/06/17 12:19 98.4 84 20 165/90 99 Room Air 98.4 Status: improved Disposition: HOME, SELF-CARE Condition: Improved Scripts Clonidine Hcl* (CATAPRES*) 0.1 Mg Tablet 0.1 MG ORAL EVERY 8 HOURS, #15 TAB Prov: Handy Bernard DO 09/06/17 Additional Instructions: Patient is provided with the discharge instructions notified to follow up with primary doctor in the next 2-3 days otherwise return to the er with any worsening symptoms. Please note that this report is being documented using DRAGON technology. This can lead to erroneous entry secondary to incorrect interpretation by the dictating instrument. Handy Bernard DO September 06, 2017 13:02
[2017-09-06 13:14] LABS: BASOPHILS % (AUTO) 1.1 % (0.0-2.0); EOSINOPHILS % (AUTO) 0.9 % (0.0-3.0); HEMATOCRIT 35.9 % (37.0-47.0); LYMPHOCYTES % (AUTO) 36.2 % (20.0-45.0); MEAN CORPUSCULAR VOLUME 91 FL (80-99); MONOCYTES % (AUTO) 8.1 % (1.0-10.0); NEUTROPHILS % (AUTO) 53.7 % (45.0-75.0); PLATELET COUNT 289 K/UL (150-450); RED BLOOD COUNT 3.96 M/UL (4.20-5.40); RED CELL DISTRIBUTION WIDTH 12.1 % (11.6-14.8); WHITE BLOOD COUNT 6.1 K/UL (4.8-10.8)
[2017-09-06 13:28] LABS: ANION GAP 11 mmol/L (5-15); BLOOD UREA NITROGEN 13 mg/dL (7-18); CALCIUM 9.4 MG/DL (8.5-10.1); CARBON DIOXIDE 28 MMOL/L (21-32); CHLORIDE 104 MMOL/L (98-107); CREATININE 0.9 MG/DL (0.55-1.30); POTASSIUM 3.3 MMOL/L (3.5-5.1); SODIUM 143 MMOL/L (136-145)
[2017-09-06 13:43] LABS: ALANINE AMINOTRANSFERASE 29 U/L (12-78); ALBUMIN 3.8 G/DL (3.4-5.0); ALBUMIN/GLOBULIN RATIO 0.9 (1.0-2.7); ALKALINE PHOSPHATASE 69 U/L (46-116); ASPARTATE AMINO TRANSFERASE 17 U/L (15-37); BILIRUBIN,TOTAL 0.3 MG/DL (0.2-1.0); CKMB 1.2 NG/ML (0.0-3.6); CREATINE KINASE 172 U/L (26-308)
[2017-09-06] MEDS ORDERED: CATAPRES0.1 MG ORAL (13:57)
[2017-09-06 14:15] VITALS: BP 156/70
--- NOTE | 2017-09-07 10:35 | Diagnostic Imaging Report ---
Indication: Chest pain Comparison: 05/15/2017 A single view chest radiograph was obtained. Findings: Cardiomediastinal appearance is prominent but within normal limits for age. Pulmonary vascularity is appropriate. The diaphragmatic contour is smooth and costophrenic angles are sharp. No pleural effusions are identified. The bones are unremarkable. Minimal linear densities noted in the mid lung and base likely scar atelectasis. Impression: No acute findings. There is no interval change.
--- NOTE | 2017-09-10 19:41 | Cardiology Report ---
APPROVED REPORT EKG Measurement Heart [id number] Normal sinus rhythm T wave abnormality, consider inferior ischemia Abnormal ECG
== END 2017-09-06 14:15 | disposition home or self-care (01) ==
LOC: EDBD 12:25 → EDSEX 12:25 → EMR 12:50
DX: R07.89 Other chest pain (principal); I10 Essential (primary) hypertension; J44.9 Chronic obstructive pulmonary disease, unspecified; E11.9 Type 2 diabetes mellitus without complications; M32.9 Systemic lupus erythematosus, unspecified; Z88.8 Allergy status to other drugs, medicaments and biological substances; Z88.5 Allergy status to narcotic agent
CPT/HCPCS: 36415; 71045; 80053; 82550; 82553; 84484; 85025; 93005; 99283